=== PATIENT | male | born 1950 | race Caucasian/White ===

== ENCOUNTER 2016-12-20 08:30 | Emergency (ER) | payer OTHER ==
[~2016-12-20] VITALS: Ht 180.3 cm; Wt 77.6 kg
[~2016-12-20 08:30] MED LIST: BENADRYL ALLERG25 MG PO; BENADRYL50 MG PO; CARVEDILOL6.25 MG PO; CELEBREX200 MG PO; CYANOCOBAL1000 MCG/2 IM; DILAUDID4 MG PO; FUROSEMIDE40 MG PO; HYTRIN1 MG PO; IMODIUM MS REL1 EACH PO; KEFLEX500 MG PO; KLOR-CON20 MEQ PO; LIDODERM 5% P1 PATCH TD; LIPITOR10 MG PO; MELOXICAM7.5 MG PO; MICARDIS80 MG PO; NAPROXEN500 MG PO; NEURONTIN300 MG PO; NEURONTIN600 MG PO; PERCOCET 5/31 TABLET PO; PERCOCET 7.51 TABLET PO; PLAVIX75 MG PO; PREDNISONE20 MG PO; SODIUM CHLORIDE1 G1 PO; VALIUM2 MG PO; ZOFRAN ODT4 MG PO; ZOFRAN ODT8 MG PO
[2016-12-20 09:59] LABS: HEMATOCRIT 35.1 % (38.0-50.0); MCH 30.9 PG (29.0-34.0); MCHC 33.3 G/DL (30.0-36.0); MCV 92.6 FL (86-99); MEAN PLAT.VOLUME 10.6 uM^3 (9.0-12.4); PLATELET COUNT 182 K/uL (156-360); RBC DIS.WIDTH-CV 12.8 % (11.8-14.6); RBC DIS.WIDTH-SD 43.7 % (39-53); RED BLOOD COUNT 3.79 M/uL (4.00-5.50); WHITE BLOOD COUNT 4.8 K/uL (4.1-10.2)
[2016-12-20 10:10] LABS: CHLORIDE 105 mEq/L (99-109); SODIUM 139 mEq/L (136-147)
[2016-12-20 10:12] LABS: GLUCOSE 103 mg/dL (70-99)
[2016-12-20 10:13] LABS: ANION GAP 8 MEQ/L (2-14)
[2016-12-20 10:15] LABS: GFR ESTIMATE (CALCULATED) > 59 mL/min/
[2016-12-20 10:16] LABS: UREA NITROGEN (BUN) 11 mg/dL (9-23)
[2016-12-20 14:47] VITALS: BP 142/83
== END 2016-12-20 14:48 | disposition home or self-care (01) ==
LOC: EME 08:30
DX: R04.2 Hemoptysis (principal); K62.5 Hemorrhage of anus and rectum; Z79.02 Long term (current) use of antithrombotics/antiplatelets; R91.8 Other nonspecific abnormal finding of lung field; R60.0 Localized edema; I10 Essential (primary) hypertension; Z85.46 Personal history of malignant neoplasm of prostate; Z87.891 Personal history of nicotine dependence
CPT/HCPCS: 71275; 80048; 85027; 86850; 86900; 86901; 99281; 99285

== ENCOUNTER 2017-05-27 09:13 | Emergency (ER) | payer OTHER ==
[~2017-05-27] VITALS: Ht 180.3 cm; Wt 72.7 kg
[2017-05-27 10:02] LABS: HEMATOCRIT 37.3 % (38.0-50.0); HEMOGLOBIN 12.7 G/DL (12.5-16.6); MCH 31.6 PG (29.0-34.0); MCV 92.8 FL (86-99); PLATELET COUNT 201 K/uL (156-360); RBC DIS.WIDTH-CV 12.7 % (11.8-14.6); RBC DIS.WIDTH-SD 43.3 % (39-53); RED BLOOD COUNT 4.02 M/uL (4.00-5.50); WHITE BLOOD COUNT 4.1 K/uL (4.1-10.2)
[2017-05-27 10:13] LABS: CHLORIDE 103 mEq/L (99-109); POTASSIUM 3.9 mEq/L (3.7-5.4); SODIUM 141 mEq/L (136-147)
[2017-05-27 10:14] LABS: GLUCOSE 129 mg/dL (70-99)
[2017-05-27 10:18] LABS: GFR ESTIMATE (CALCULATED) > 59 mL/min/ (58.99-99999)
[2017-05-27 10:19] LABS: UREA NITROGEN (BUN) 16 mg/dL (9-23)
[2017-05-27] MEDS ORDERED: MIRALAX17 GM PO (13:47)
[2017-05-27 14:13] VITALS: BP 148/79
== END 2017-05-27 14:15 | disposition home or self-care (01) ==
LOC: EME 09:13
DX: K92.1 Melena (principal); K59.00 Constipation, unspecified; K62.89 Other specified diseases of anus and rectum; I10 Essential (primary) hypertension; Z85.46 Personal history of malignant neoplasm of prostate; Z86.73 Personal history of transient ischemic attack (TIA), and cerebral infarction without residual deficits; Z87.891 Personal history of nicotine dependence; Z88.8 Allergy status to other drugs, medicaments and biological substances
CPT/HCPCS: 74177; 80048; 85027; 86850; 86900; 86901; 99281; 99285; J7030

== ENCOUNTER → 2017-07-30 | Outpatient (CLI) | payer OTHER ==
[~2017-07-30] MED LIST changes: +MIRALAX17 GM PO
== END | disposition home or self-care (01) ==
LOC: RAD 13:29
DX: M48.062 Spinal stenosis, lumbar region with neurogenic claudication (principal); M51.86 Other intervertebral disc disorders, lumbar region; M46.86 Other specified inflammatory spondylopathies, lumbar region; M24.28 Disorder of ligament, vertebrae; Z98.1 Arthrodesis status; Z96.89 Presence of other specified functional implants
CPT/HCPCS: 62304; 72132

== ENCOUNTER 2017-08-13 16:35 | Emergency (ER) | payer OTHER ==
[~2017-08-13] VITALS: Ht 180.3 cm; Wt 66.3 kg
[2017-08-13 20:40] LABS: HEMATOCRIT 35.9 % (38.0-50.0); HEMOGLOBIN 12.2 G/DL (12.5-16.6); MCH 31.5 PG (29.0-34.0); MCV 92.8 FL (86-99); PLATELET COUNT 203 K/uL (156-360); RBC DIS.WIDTH-CV 12.8 % (11.8-14.6); RBC DIS.WIDTH-SD 43.8 % (39-53); RED BLOOD COUNT 3.87 M/uL (4.00-5.50); WHITE BLOOD COUNT 5.9 K/uL (4.1-10.2)
[2017-08-13 20:53] LABS: ALBUMIN 4.2 g/dL (3.2-4.8); CHLORIDE 103 mEq/L (99-109); POTASSIUM 4.1 mEq/L (3.7-5.4); SODIUM 140 mEq/L (136-147)
[2017-08-13 20:55] LABS: GLUCOSE 111 mg/dL (70-99)
[2017-08-13 20:56] LABS: TOTAL PROTEIN 6.5 g/dL (6.4-8.3)
[2017-08-13 20:57] LABS: TOTAL BILIRUBIN 1.3 mg/dL (0.0-1.0)
[2017-08-13 20:59] LABS: ALKALINE PHOSPHATASE 41 IU/L (3-129); CREATININE 0.8 mg/dL (0.6-1.3); GFR ESTIMATE (CALCULATED) > 59 mL/min/ (58.99-99999)
[2017-08-13 21:00] LABS: UREA NITROGEN (BUN) 12 mg/dL (9-23)
[2017-08-13 21:01] LABS: AST (GOT) 12 IU/L (2-34)
[2017-08-13 21:02] LABS: ALT (GPT) 4 IU/L (3-49)
[2017-08-13 21:53] LABS: APPEARANCE CLEAR ((CLEAR)); BILIRUBIN NEGATIVE; BLOOD NEGATIVE; COLOR YELLOW ((YELLOW)); GLUCOSE (STRIP) NEGATIVE; KETONES 5; LEUKOCYTES NEGATIVE; NITRITE NEGATIVE; PROTEIN (STRIP) NEGATIVE; SPECIFIC GRAVITY 1.016 (1.000-1.030); UCUL ADDED? NO
[2017-08-13 22:43] VITALS: BP 158/88
== END 2017-08-13 22:44 | disposition home or self-care (01) ==
LOC: EME 16:35
PROVIDERS: Physician Assistant
DX: R42 Dizziness and giddiness (principal); L89.152 Pressure ulcer of sacral region, stage 2; I10 Essential (primary) hypertension; I69.351 Hemiplegia and hemiparesis following cerebral infarction affecting right dominant side; G62.9 Polyneuropathy, unspecified; Z86.718 Personal history of other venous thrombosis and embolism; Z85.46 Personal history of malignant neoplasm of prostate; Z87.19 Personal history of other diseases of the digestive system; Z88.8 Allergy status to other drugs, medicaments and biological substances
CPT/HCPCS: 71046; 80053; 81003; 85027; 87070; 87075; 87076; 87077; 87147; 87186; 87205; 99281; 99284

== ENCOUNTER 2017-08-24 13:13 | Emergency (ER) | payer OTHER ==
[~2017-08-24] VITALS: Ht 180.3 cm; Wt 65.0 kg
[2017-08-24 14:22] LABS: BASOPHIL (%) 0.7 % (0-1); HEMATOCRIT 35.1 % (38.0-50.0); HEMOGLOBIN 12.1 G/DL (12.5-16.6); IMMATURE GRANULOCYTE (%) 0.5 % (0.0-0.7); LYMPHOCYTE (%) 13.9 % (15-42); LYMPHOCYTE COUNT 0.6 K/uL (1.0-2.8); MCH 31.3 PG (29.0-34.0); MCHC 34.5 G/DL (30.0-36.0); MCV 90.9 FL (86-99); MONOCYTE (%) 9.5 % (3-12); MONOCYTE COUNT 0.4 K/uL (0-0.8); NEUTROPHIL (%) 74.4 % (45-76); PLATELET COUNT 195 K/uL (156-360); RBC DIS.WIDTH-CV 12.9 % (11.8-14.6); RBC DIS.WIDTH-SD 43.1 % (39-53); RED BLOOD COUNT 3.86 M/uL (4.00-5.50); WHITE BLOOD COUNT 4.1 K/uL (4.1-10.2)
[2017-08-24 14:30] LABS: ALBUMIN 4.1 g/dL (3.2-4.8); CHLORIDE 98 mEq/L (99-109); POTASSIUM 4.4 mEq/L (3.7-5.4)
[2017-08-24 14:31] LABS: SODIUM 132 mEq/L (136-147)
[2017-08-24 14:33] LABS: GLUCOSE 106 mg/dL (70-99)
[2017-08-24 14:35] LABS: TOTAL BILIRUBIN 1.3 mg/dL (0.0-1.0)
[2017-08-24 14:36] LABS: ALKALINE PHOSPHATASE 38 IU/L (3-129)
[2017-08-24 14:37] LABS: CREATININE 0.8 mg/dL (0.6-1.3); GFR ESTIMATE (CALCULATED) > 59 mL/min/ (58.99-99999)
[2017-08-24 14:38] LABS: AST (GOT) 14 IU/L (2-34); UREA NITROGEN (BUN) 13 mg/dL (9-23)
[2017-08-24 14:40] LABS: ALT (GPT) 4 IU/L (3-49)
[2017-08-24 14:43] LABS: TROP-I INTERPRETATION NEGATIVE; TROPONIN-I < 0.01 ng/mL (0.0-0.30)
[2017-08-24 14:50] LABS: APPEARANCE CLEAR ((CLEAR)); BILIRUBIN NEGATIVE; BLOOD NEGATIVE; COLOR YELLOW ((YELLOW)); GLUCOSE (STRIP) NEGATIVE; KETONES NEGATIVE; LEUKOCYTES NEGATIVE; NITRITE NEGATIVE; PROTEIN (STRIP) NEGATIVE; SPECIFIC GRAVITY 1.018 (1.000-1.030); UCUL ADDED? NO
[2017-08-24 17:02] VITALS: BP 146/82
== END 2017-08-24 17:02 | disposition home or self-care (01) ==
LOC: EME 13:13
PROVIDERS: Emergency Medicine
DX: R53.1 Weakness (principal); R42 Dizziness and giddiness; T40.2X5A Adverse effect of other opioids, initial encounter; G89.29 Other chronic pain; M54.9 Dorsalgia, unspecified; I69.398 Other sequelae of cerebral infarction; Z85.46 Personal history of malignant neoplasm of prostate; I10 Essential (primary) hypertension; F10.10 Alcohol abuse, uncomplicated; G62.9 Polyneuropathy, unspecified; Z79.02 Long term (current) use of antithrombotics/antiplatelets; Z79.891 Long term (current) use of opiate analgesic; Z88.8 Allergy status to other drugs, medicaments and biological substances
CPT/HCPCS: 71045; 80053; 81003; 83735; 84484; 85025; 93005; 99281; 99284; J7040